=== PATIENT | male | born 1985 | race Caucasian/White ===

== ENCOUNTER 2017-09-03 08:50 | Emergency (ER) | payer SELFPAY ==
[~2017-09-03] VITALS: Ht 177.8 cm; Wt 90.0 kg
[2017-09-03] MEDS ORDERED: KETOROLAC 60MG/2ML VIAL IM ONE (09:00)
[2017-09-03 09:18] VITALS: BP 123/79
== END 2017-09-03 10:37 | disposition home or self-care (01) ==
LOC: ER 09:17
DX: M25.562 Pain in left knee (principal)
CPT/HCPCS: 73562; 96372; 99284; J1885

== ENCOUNTER 2018-09-12 07:26 | Inpatient (IN) | payer MEDICAID ==
[~2018-09-12] VITALS: Ht 170.2 cm; Wt 100.7 kg
[~2018-09-12 07:26] MED LIST: CELECOXIB 200MG CAPSULE PO SCH; GABAPENTIN 300MG CAPSULE PO SCH; TRAMADOL 50MG TABLET PO SCH
[2018-09-12] MEDS ORDERED: LACTATED RINGERS 1,000 ML IV SCH (08:00)
[2018-09-12 08:58] LABS: BASOPHILS % 0.9 % (0.0-2.0); HEMOGLOBIN. 15.7 g/dL (14.0-18.0); LYMPHOCYTES % 34.7 % (20.0-50.0); MEAN CORPUSCULAR HEMOGLOBIN 31.2 pg (28.0-32.0); MEAN CORPUSCULAR VOLUME 89.4 fL (80.0-94.0); MEAN PLATELET VOLUME 9.1 fl (7.4-10.4); MONOCYTES % 10.2 % (2.0-8.0); NEUTROPHILS % 50.2 % (40.0-76.0); PLATELET 221 x1000/uL (130-400); RED BLOOD CELL COUNT 5.03 mill/uL (4.7-6.1); RED CELL DISTRIBUTION WIDTH 12.8 % (11.6-14.6)
[2018-09-12] MEDS ORDERED: LIDOCAINE HCL 1% 20ML VIAL (Pyxis) INJ ONE (10:19)
[2018-09-12] MEDS ORDERED: NORMAL SALINE 0.9% 10 ML SYR ONE (10:20)
[2018-09-12] MEDS ORDERED: BUPIVACAINE HCL/PF 0.5% (5MG/ML) 10ML ONE (10:20)
[2018-09-12] MEDS ORDERED: BACITRACIN 50,000 UNITS/VIAL ONE (10:20)
[2018-09-12] MEDS ORDERED: SKIN ADHESIVE 0.7 GM EA TOP ONE (10:36)
[2018-09-12] MEDS ORDERED: PROPOFOL 200MG/20ML VIAL IV ONE (11:14)
[2018-09-12] MEDS ORDERED: GLYCOPYRROLATE 0.2 MG/ML 2ML VIAL ONE ×2 (11:15→14:52)
[2018-09-12] MEDS ORDERED: LIDOCAINE HCL/PF 1% 10 MG/ML 5ML VIAL ONE (11:15)
[2018-09-12] MEDS ORDERED: MIDAZOLAM HCL 2 MG/2 ML VIAL ONE (11:15)
[2018-09-12] MEDS ORDERED: SUCCINYLCHOLINE CHLORIDE 200MG/10ML IV ONE ×2 (11:16→11:17)
[2018-09-12] MEDS ORDERED: TERBUTALINE SULFATE 1MG/ML VIAL ONE (11:16)
[2018-09-12] MEDS ORDERED: CEFAZOLIN SODIUM 1000MG/VIAL ONE (12:16)
[2018-09-12] MEDS ORDERED: NEOSTIGMINE METHYLSULFATE 1MG/ML 10 ML VIAL ONE (14:52)
[2018-09-12] MEDS ORDERED: HYDROCODONE/ACETAMINOPHEN 5/325MG TABLET PO PRN (16:00)
[2018-09-12 16:54] VITALS: BP 118/68
[2018-09-12] MEDS ORDERED: ONDANSETRON HCL 4MG/2ML INJ IV PRN (18:45)
[2018-09-12 20:00] VITALS: BP 125/66
[2018-09-13] VITALS: BP 121/69
[2018-09-13 04:00] VITALS: BP 108/58
[2018-09-13 07:04] LABS: CLARITY URINE CLEAR (CLEAR); COLOR URINE YELLOW (YELLOW); KETONES URINE NEGATIVE (NEGATIVE); LEUKOCYTE ESTERASE URINE NEGATIVE (NEGATIVE); NITRITE URINE NEGATIVE (NEGATIVE); OCCULT BLOOD URINE NEGATIVE (NEGATIVE); PROTEIN URINE NEGATIVE (NEGATIVE); SPECIFIC GRAVITY URINE 1.019 (1.005-1.030); UROBILINOGEN URINE 0.2 E.U./dL (0.2-1.0)
[2018-09-13 08:00] VITALS: BP 112/64
[2018-09-13 08:47] VITALS: BP 112/64
== END 2018-09-13 09:15 | disposition home or self-care (01) | DRG 228 ==
LOC: OR 07:26 → 6EST 07:27
PROVIDERS: ADMIT Specialist; ATTEND Specialist
PROC: 0YU54JZ Supplement Right Inguinal Region with Synthetic Substitute, Percutaneous Endoscopic Approach (ICD-10-PCS; principal; 2018-09-12)
PROC: 8E0W4CZ Robotic Assisted Procedure of Trunk Region, Percutaneous Endoscopic Approach (ICD-10-PCS; 2018-09-12)
DX: K40.20 Bilateral inguinal hernia, without obstruction or gangrene, not specified as recurrent (principal)
CPT/HCPCS: 36415; 93005; C1781; J0330; J0690; J2250; J2405; J2704; J2710; J3105; J3490